=== PATIENT | male | born 1960 | race Caucasian/White ===

== ENCOUNTER 2024-11-06 12:00 | Day surgery (SDC) | payer OTHER, SELFPAY ==
[2024-11-06] VITALS (12 sets, daily range): BP systolic 116–142; BP diastolic 70–88; PULSE 55–65; RESP 15–23; TEMP 36.4–36.9; O2SAT 95–99; BMI 24.6
[2024-11-06] MEDS: RINGERS LACTATED 1000 ML 1,000 ML 125 ML IV (13:54)
[2024-11-06] MEDS: fentaNYL CIT INJ 50 mCg/ML AMP 2ML (ASD USE ONLY) IV (13:56)
[2024-11-06] MEDS: MIDAZOLAM INJ 1 MG/ML VIAL 2 ML (ASD USE ONLY) 2 MG IV (13:57)
== END 2024-11-06 15:20 | disposition home or self-care (01) ==
PROVIDERS: PCP Internal Medicine; Referring Provider Surgery; Visit Provider Surgery
PROC: 0DBE8ZX Excision of Large Intestine, Via Natural or Artificial Opening Endoscopic, Diagnostic (ICD-10-PCS; CPT 45380; principal; 2024-11-06 13:00)
DX: Z12.11 Encounter for screening for malignant neoplasm of colon (principal); D12.0 Benign neoplasm of cecum
CPT/HCPCS: 45380; A4649; J2250; J3010; J7120